=== PATIENT | female | born 1980 | race African-American/Black ===

== ENCOUNTER 2018-03-02 07:17 | Emergency (ER) | payer SELFPAY ==
[~2018-03-02] VITALS: Ht 167.6 cm; Wt 65.0 kg
[2018-03-02] MEDS ORDERED: LAMOTRIGINE 100MG TABLET PO SCH (08:00)
[2018-03-02 08:15] LABS: BASOPHILS % 0.3 % (0.0-2.0); EOSINOPHILS % 0.6 % (0.0-5.0); HEMATOCRIT. 33.5 % (36.0-48.0); HEMOGLOBIN. 11.7 g/dL (12.0-16.0); LYMPHOCYTES % 16.7 % (20.0-50.0); MEAN CORPUSCULAR HEMOGLOBIN 29.8 pg (28.0-32.0); MEAN CORPUSCULAR VOLUME 85.3 fL (81.0-99.0); MEAN PLATELET VOLUME 6.1 fl (7.4-10.4); NEUTROPHILS % 75.4 % (40.0-76.0); PLATELET 266 x1000/uL (130-400); RED BLOOD CELL COUNT 3.93 mill/uL (4.2-5.4); RED CELL DISTRIBUTION WIDTH 14.2 % (11.6-14.6)
[2018-03-02 08:17] LABS: CHLORIDE 106 mEq/L (98-107)
[2018-03-02 08:26] LABS: CLARITY URINE CLEAR (CLEAR); COLOR URINE YELLOW (YELLOW); KETONES URINE NEGATIVE (NEGATIVE); LEUKOCYTE ESTERASE URINE NEGATIVE (NEGATIVE); NITRITE URINE NEGATIVE (NEGATIVE); OCCULT BLOOD URINE 1+ (NEGATIVE); PH URINE 5.5 (4.5-8.0); PROTEIN URINE NEGATIVE (NEGATIVE); SPECIFIC GRAVITY URINE 1.016 (1.005-1.030); UROBILINOGEN URINE 0.2 E.U./dL (0.2-1.0)
[2018-03-02 08:28] LABS: ETHANOL BLOOD < 10 mg/dL
[2018-03-02] MEDS ORDERED: LAMOTRIGINE 25MG TABLET PO ONE (08:30)
[2018-03-02 09:12] VITALS: BP 120/76
[2018-03-02 09:25] LABS: METHADONE URINE SCREEN NEGATIVE (NEGATIVE); OPIATES URINE SCREEN NEGATIVE (NEGATIVE)
[2018-03-02 09:26] LABS: *AMPHETAMINES SCREEN URINE NEGATIVE (NEGATIVE); *BARBITURATES SCREEN URINE NEGATIVE (NEGATIVE); *BENZODIAZEPINES SCREEN URINE NEGATIVE (NEGATIVE); *COCAINE SCREEN URINE NEGATIVE (NEGATIVE); CANNABINOID URINE SCREEN NEGATIVE (NEGATIVE); PHENCYCLIDINE URINE SCREEN NEGATIVE (NEGATIVE)
== END 2018-03-02 09:23 | disposition left against medical advice (07) ==
LOC: ER 07:34
DX: O99.352 Diseases of the nervous system complicating pregnancy, second trimester (principal); Z3A.19 19 weeks gestation of pregnancy; G40.909 Epilepsy, unspecified, not intractable, without status epilepticus
CPT/HCPCS: 36415; 80053; 80305; 81003; 85025; 99284; G0482